=== PATIENT | female | born 1975 | race Caucasian/White ===

== ENCOUNTER → 2023-05-14 | Outpatient (CLI) | LOC: M SOG 07:56 | PROVIDERS: ATTEND Physician Assistant | DX: M79.644 Pain in right finger(s) (principal) ==

== ENCOUNTER 2023-09-13 06:29 | Day surgery (SDC) | payer OTHER ==
[~2023-09-13] VITALS: Ht 165.1 cm; Wt 120.0 kg
[~2023-09-13 06:29] MED LIST: ATOR40TA75; BUPR-71; LEVO100T5; TOLT2CAP4; TRIA37.5
[2023-09-13] MEDS: SODIUM BICARBONATE 8.4% INJ 50MEQ 50ML VIAL XX ONE (07:15)
[2023-09-13] MEDS: LIDOCAINE W/EPINEPHRINE 1% 20ML VIAL XX ONE (07:15)
[2023-09-13] MEDS ORDERED: BACITRACIN OINTMENT 30GM TUBE As Ordered ONE (08:20)
[2023-09-13 08:30] VITALS: BP 130/68; TEMP 97.5; O2SAT 97
== END 2023-09-13 08:37 | disposition home or self-care (01) ==
LOC: M SDC 06:29
PROVIDERS: ATTEND Orthopaedic Surgery Hand Surgery
DX: M65.4 Radial styloid tenosynovitis [de Quervain] (principal)

== ENCOUNTER 2023-11-28 06:04 | Day surgery (SDC) | payer OTHER ==
[~2023-11-28] VITALS: Ht 165.1 cm; Wt 116.4 kg
[~2023-11-28 06:04] MED LIST changes: +ALLE180T33 PO; -BUPR-71; +BUPR-71 PO; +LIDOCAINE W/EPINEPHRINE 1% 20ML VIAL XX ONE; +MULTTAB86 PO; +PROB250C PO; +SODIUM BICARBONATE 8.4% INJ 50MEQ 50ML VIAL XX ONE; +VITA100T59 PO
[2023-11-28] MEDS ORDERED: SODIUM BICARBONATE 8.4% INJ 50MEQ 50ML VIAL XX ONE (07:00)
[2023-11-28] MEDS ORDERED: LIDOCAINE W/EPINEPHRINE 1% 20ML VIAL XX ONE (07:00)
[2023-11-28] MEDS: BACITRACIN OINTMENT 30GM TUBE As Ordered ONE (08:00)
[2023-11-28 08:02] VITALS: BP 149/88; TEMP 98.5; O2SAT 95
== END 2023-11-28 08:20 | disposition home or self-care (01) ==
LOC: M SDC 06:04
PROVIDERS: ATTEND Orthopaedic Surgery Hand Surgery
DX: M65.332 Trigger finger, left middle finger (principal)

== ENCOUNTER → 2024-11-12 | Outpatient (CLI) | payer OTHER ==
[~2024-11-12] MED LIST changes: -LIDOCAINE W/EPINEPHRINE 1% 20ML VIAL XX ONE; -SODIUM BICARBONATE 8.4% INJ 50MEQ 50ML VIAL XX ONE
== END ==
LOC: M LAB 11:04
PROVIDERS: ATTEND Podiatrist Foot & Ankle Surgery
DX: M79.672 Pain in left foot (principal)